=== PATIENT | male | born 1960 | race Caucasian/White ===

== ENCOUNTER 2017-08-17 15:24 | Emergency (ER) | payer MEDICAID ==
[2017-08-17 15:43] VITALS: BP 127/87; RESP 16; TEMP 97.8; O2SAT 98
[2017-08-17 16:39] VITALS: PULSE 98
[2017-08-17] MEDS ORDERED: Silver Sulfadiazine 1% Cream (20 gm) TOP STA (16:58)
[2017-08-17] MEDS ORDERED: Tmp-Smz 800 mg-160 mg DS Tab PO STA (16:58)
[2017-08-17] MEDS ORDERED: Tmp-Smz 800 mg-160 mg DS Tab ONE (17:50)
[2017-08-17] MEDS ORDERED: Silver Sulfadiazine 1% CREAM (50 gm) ONE (17:50)
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
== END 2017-08-17 18:42 | disposition home or self-care (01) ==
LOC: H.ER 15:24
DX: L08.9 Local infection of the skin and subcutaneous tissue, unspecified (principal); L97.919 Non-pressure chronic ulcer of unspecified part of right lower leg with unspecified severity